=== PATIENT | female | born 1930 | race Caucasian/White ===

== ENCOUNTER 2017-05-26 19:21 | Emergency (ER) | payer OTHER ==
[~2017-05-26] VITALS: Ht 152.4 cm; Wt 63.4 kg
[2017-05-26 19:56] LABS: HEMATOCRIT 44.4 % (36.0-46.0); HEMOGLOBIN 15.8 G/DL (11.9-15.5); MCH 31.5 PG (29.0-34.0); MCHC 35.6 G/DL (30.0-36.0); MCV 88.6 FL (83-99); PLATELET COUNT 323 K/uL (156-360); RBC DIS.WIDTH-CV 12.4 % (11.8-14.6); RBC DIS.WIDTH-SD 40.1 % (39-53); RED BLOOD COUNT 5.01 M/uL (3.80-5.20)
[2017-05-26 20:04] LABS: CHLORIDE 107 mEq/L (99-109); POTASSIUM 3.8 mEq/L (3.7-5.4); SODIUM 141 mEq/L (136-147)
[2017-05-26 20:06] LABS: GLUCOSE 110 mg/dL (70-99)
[2017-05-26 20:10] LABS: CREATININE 1.1 mg/dL (0.6-1.3)
[2017-05-26 20:11] LABS: GFR ESTIMATE (CALCULATED) 50 mL/min/; UREA NITROGEN (BUN) 11 mg/dL (9-23)
[2017-05-26 20:59] LABS: TROP-I INTERPRETATION NEGATIVE; TROPONIN-I < 0.01 ng/mL (0.0-0.30)
[2017-05-26] MEDS ORDERED: NORVASC10 MG PO (22:05)
[2017-05-26] MEDS ORDERED: SIMVASTATIN20 MG PO (22:05)
[2017-05-26] MEDS ORDERED: ATENOLOL100 MG PO (22:05)
[2017-05-26 23:48] VITALS: BP 120/49
== END 2017-05-26 23:49 | disposition home or self-care (01) ==
LOC: EME 19:21
PROVIDERS: Emergency Medicine
DX: F03.90 Unspecified dementia, unspecified severity, without behavioral disturbance, psychotic disturbance, mood disturbance, and anxiety (principal); R44.3 Hallucinations, unspecified; I10 Essential (primary) hypertension; E78.5 Hyperlipidemia, unspecified; Z88.0 Allergy status to penicillin
CPT/HCPCS: 70450; 71046; 80048; 81003; 84484; 85027; 93005; 99281; 99284

== ENCOUNTER 2017-05-28 10:41 | Inpatient (IN) | payer OTHER ==
[~2017-05-28] VITALS: Ht 152.4 cm; Wt 64.0 kg
[~2017-05-28 10:41] MED LIST: ATENOLOL100 MG PO; NORVASC10 MG PO; SIMVASTATIN20 MG PO
[2017-05-28 11:35] LABS: HEMATOCRIT 41.8 % (36.0-46.0); HEMOGLOBIN 14.8 G/DL (11.9-15.5); MCH 31.4 PG (29.0-34.0); MCHC 35.4 G/DL (30.0-36.0); MCV 88.6 FL (83-99); PLATELET COUNT 280 K/uL (156-360); RBC DIS.WIDTH-CV 12.4 % (11.8-14.6); RBC DIS.WIDTH-SD 40.9 % (39-53); RED BLOOD COUNT 4.72 M/uL (3.80-5.20); WHITE BLOOD COUNT 6.9 K/uL (4.1-10.2)
[2017-05-28 11:44] LABS: CHLORIDE 106 mEq/L (99-109); POTASSIUM 3.8 mEq/L (3.7-5.4); SODIUM 140 mEq/L (136-147)
[2017-05-28 11:46] LABS: GLUCOSE 107 mg/dL (70-99)
[2017-05-28 11:49] LABS: SERUM ETHYL ALCOHOL < 10 mg/dL
[2017-05-28 11:50] LABS: CREATININE 1.1 mg/dL (0.6-1.3); GFR ESTIMATE (CALCULATED) 50 mL/min/
[2017-05-28 11:51] LABS: UREA NITROGEN (BUN) 11 mg/dL (9-23)
[2017-05-28 12:17] LABS: APPEARANCE SL.HAZY ((CLEAR)); BILIRUBIN NEGATIVE; BLOOD NEGATIVE; COLOR YELLOW ((YELLOW)); GLUCOSE (STRIP) NEGATIVE; KETONES NEGATIVE; LEUKOCYTES LARGE; NITRITE NEGATIVE; PROTEIN (STRIP) 100; SPECIFIC GRAVITY 1.014 (1.000-1.030); UROBILINOGEN 0.2 MG/DL (0.2-1.0)
[2017-05-28 12:28] LABS: AMPHETAMINE NEGATIVE (500 ng/mL); BARBITURATES NEGATIVE (200 ng/mL); BENZODIAZEPINES NEGATIVE (150 ng/mL); COCAINE NEGATIVE (150 ng/mL); METHADONE NEGATIVE (200 ng/mL); METHAMPHETAMINE NEGATIVE (500 ng/mL); OPIATES (MORPHINE) NEGATIVE (100 ng/mL); PHENCYCLIDINE NEGATIVE (25 ng/mL); THC CANNABINOIDS NEGATIVE (50 ng/mL); TRICYCLIC ANTIDEPRESSANTS NEGATIVE (300 ng/mL)
[2017-05-28 12:29] LABS: BUPRENORPHINE NEGATIVE (10 ng/mL); OXYCODONE NEGATIVE (100 ng/mL); PROPOXYPHENE NEGATIVE (300 ng/mL)
[2017-05-28 12:55] LABS: BACTERIA NONE SEEN /HPF; EPITHELIAL CELLS RARE /HPF; MUCUS TRACE /LPF; RED BLOOD CELLS 0-5 /HPF (0-5); UCUL ADDED? YES; WHITE BLOOD CELLS TNTC /HPF (0-5)
[2017-05-28] MEDS ORDERED: LOW DOSE ASPIRI81 M1 PO (14:53)
[2017-05-28 16:36] VITALS: BP 134/60
[2017-05-28 16:56] VITALS: BP 134/60
[2017-05-29 07:40] VITALS: BP 117/58
[2017-05-29 13:49] LABS: FOLIC ACID (FOLATE) 9.7 NG/ML (5.0-22.0)
[2017-05-29 15:34] VITALS: BP 152/91
[2017-05-30 07:44] VITALS: BP 129/60
[2017-05-30 15:23] VITALS: BP 137/66
[2017-05-31 08:28] VITALS: BP 163/68
[2017-05-31 15:31] VITALS: BP 132/63
[2017-06-01 08:12] VITALS: BP 122/59
[2017-06-01 16:56] VITALS: BP 145/66
[2017-06-02 07:38] VITALS: BP 127/64
[2017-06-02 15:42] VITALS: BP 126/57
[2017-06-03 07:30] VITALS: BP 139/69
[2017-06-03 15:38] VITALS: BP 123/58
[2017-06-04 07:32] VITALS: BP 127/72
[2017-06-04 15:57] VITALS: BP 146/68
[2017-06-05 07:30] VITALS: BP 147/70
[2017-06-05] MEDS ORDERED: ATENOLOL50 MG PO (09:34)
[2017-06-05] MEDS ORDERED: RISPERIDONE0.5 MG PO (09:34)
[2017-06-05] MEDS ORDERED: LORAZEPAM0.5 MG PO (09:34)
[2017-06-05] MEDS ORDERED: ZOLPIDEM TARTRAT5 MG PO (09:34)
[2017-06-05] MEDS ORDERED: CYANOCOBALAM1000 MCG PO (09:34)
[2017-06-05] MEDS ORDERED: DONEPEZIL HCL5 MG PO (09:34)
== END 2017-06-05 13:20 | DRG 57 ==
LOC: EME 10:41 → EDOF 15:38 → 1WEST 15:38 → ENRESERV 16:04 → 1WEST 16:31
PROVIDERS: Emergency Medicine; Psychiatry & Neurology Psychiatry
DX: G30.9 Alzheimer's disease, unspecified (principal); F01.51 Vascular dementia, unspecified severity, with behavioral disturbance; I10 Essential (primary) hypertension; E78.5 Hyperlipidemia, unspecified; Z79.82 Long term (current) use of aspirin; Z88.0 Allergy status to penicillin; F22 Delusional disorders
CPT/HCPCS: 70450; 71046; 80048; 81003; 82607; 82746; 84443; 84484; 85027; 87086; 90837; 93005; 97150 GO; 97165 GO; 99281; 99284; G0480